=== PATIENT | female | born 1980 | race Caucasian/White ===

== ENCOUNTER 2017-07-11 06:29 | Day surgery (SDC) | payer BC ==
[~2017-07-11 06:29] MED LIST: Lactated Ringers 1,000 ML IV SCH
[2017-07-11] MEDS ORDERED: Lidocaine 2% 5 ML SDV ONE (06:57)
[2017-07-11] MEDS ORDERED: Ondansetron 4 MG/2 ML SDV ONE (06:57)
[2017-07-11] MEDS ORDERED: Midazolam 1 MG/ML 2 ML SDV ONE (06:58)
[2017-07-11] MEDS ORDERED: Propofol 200 MG/20 ML SDV ONE (06:58)
[2017-07-11] MEDS ORDERED: fentaNYL 100 MCG/2 ML SDV ONE (06:58)
[2017-07-11] MEDS ORDERED: Scopolamine 1.5 MG Transdermal Patch TRDERM PRN (07:07)
--- NOTE | 2017-07-11 07:07 | PCM.PREANE ---
Preanesthetic Assessment - Anesthesia/Transfusion/Family Hx Anesthesia History: Prior Anesthesia Without Reaction Family History of Anesthesia Reaction: No Transfusion History: No Prior Transfusion(s) Intubation History: Unknown - Review of Systems General: No Symptoms Pulmonary: No Symptoms Cardiovascular: No Symptoms Gastrointestinal: No Symptoms Neurological: No Symptoms Other: Reports: None - Physical Assessment O2 Sat by Pulse Oximetry: 98 Respiratory Rate: 16 Vital Signs: Last Vital Signs Temp 36.5 C 07/11/17 06:49 Pulse 82 07/11/17 06:49 Resp 16 07/11/17 06:49 BP 108/66 07/11/17 06:49 Pulse Ox 98 07/11/17 06:49 Height: 1.61 m Weight: 56.245 kg ASA Class: 2 Mental Status: Alert & Oriented x3 Airway Class: Mallampati = 2 Dentition: Reports: Normal Dentition (retainer at the bottom) Thyro-Mental Finger Breadths: 3 Mouth Opening Finger Breadths: 2 ROM/Head Extension: Full Lungs: Clear to Auscultation, Normal Respiratory Effort Cardiovascular: Regular Rate, Regular Rhythm - Allergies Allergies/Adverse Reactions: Allergies Allergy/AdvReac Type Severity Reaction Status Date / Time No Known Allergies Allergy Verified 07/08/17 15:23 - Blood Blood Available: No - Anesthesia Plan Pre-Op Medication Ordered: None - Acknowledgements Anesthesia Type Planned: General Anesthesia Pt an Appropriate Candidate for the Planned Anesthesia: Yes Alternatives and Risks of Anesthesia Discussed w Pt/Guardian: Yes Pt/Guardian Understands and Agrees with Anesthesia Plan: Yes PreAnesthesia Questionnaire HEENT History: Reports: None Genitourinary History: Reports: None ADOPTION SPECIALIST History: Reports: Neurological History: Reports: Migraines Psychiatric History: Reports: Depression Hematologic History: Reports: Idiopathic Thrombocytopenia Other Hematologic History: thrombocytopenia with - Past Surgical History Head Surgeries/Procedures: Reports: None HEENT Surgical History: Reports: Adenoidectomy, Tonsillectomy Female Surgical History: Reports: Section, LEEP - SUBSTANCE USE Smoking Status *Q: Never Smoker Recreational Drug Use History: No - HOME MEDS Home Medications: Home Meds Vit #108/Iron/FA [ One Tablet] 1 tab PO DAILY 07/08/17 [History ] - CURRENT (IN HOUSE) MEDS Current Meds: Current Medications Lactated Ringer's (Ringers, Lactated) 1,000 mls @ 125 mls/hr IV ASDIRECTED KAYE Last Admin: 07/11/17 06:52 Dose: 125 mls/hr Discontinued Medications Fentanyl (Sublimaze) Confirm Administered Dose 100 mcg .ROUTE .STK-MED ONE Stop: 07/11/17 06:59 Lidocaine (Xylocaine-Mpf 2%) Confirm Administered Dose 5 ml .ROUTE .STK-MED ONE Stop: 07/11/17 06:58 Midazolam HCl (Versed 1 Mg/Ml) Confirm Administered Dose 2 mg .ROUTE .STK-MED ONE Stop: 07/11/17 06:59 Ondansetron HCl (Zofran) Confirm Administered Dose 4 mg .ROUTE .STK-MED ONE Stop: 07/11/17 06:58 Propofol (Diprivan 20 Ml) Confirm Administered Dose 200 mg .ROUTE .STK-MED ONE Stop: 07/11/17 06:59
[2017-07-11] MEDS ORDERED: Dexamethasone 4 MG/ML 5 ML MDV ONE (08:07)
[2017-07-11] MEDS ORDERED: Methylergonovine 0.2 MG/1 ML Amp ONE (08:17)
[2017-07-11] MEDS ORDERED: Phenylephrine/Normal Saline 100 MCG/ML 10 ML Syringe ONE (08:22)
--- NOTE | 2017-07-11 09:43 | PCM.OPNOTE ---
- General Post-Op/Procedure Note Date of Surgery/Procedure: 07/11/17 Operative Procedure(s): suction dilatation and curettage Findings: Uterus sounded to 9 cm boggy preop; postoperative, firm, minimal bleeding. 6 week size Pre Op Diagnosis: missed Post-Op Diagnosis: Same Anesthesia Technique: General LMA Primary Surgeon: Xuan Giron Anesthesia Provider: Bg Fish Hydraulic Hammer Operator: Tima Hassan Pathology: products of conception Fluid Replacement, Intraop: 2,500 EBL in mLs: 800 Complications: None Known Condition: Good Free Text/Narrative:: Intake & Output 07/10/17 07/11/17 07/11/17 22:59 06:59 14:59 Intake Total 2700 Balance 2700
--- NOTE | 2017-07-11 11:01 | OR ---
SURGEON: Xuan Giron M.D. DATE OF PROCEDURE: 07/11/2017 PREOPERATIVE DIAGNOSIS: Eight-week embryonic demise. Missed . POSTOPERATIVE DIAGNOSIS: Eight-week embryonic demise. Missed . PROCEDURE: Suction, dilatation, and curettage. ANESTHESIA: General LMA. ESTIMATED BLOOD LOSS: 800 mL. FLUIDS: 2500 mL crystalloid. FINDINGS: Preoperatively, the uterus was boggy and anteverted 10 weeks size, sounds to 9 cm. Postoperatively, the uterus was firm by bimanual massage with minimal bleeding, 6 weeks size. COMPLICATIONS: None known. DISPOSITION: Stable to recovery. BRIEF HISTORY: This is a -0-1-3. She presented for initial OB visit. Prior ultrasound had shown a very low heart rate at 80. Followup ultrasound showed minimal growth 8-week size embryo with no cardiac activity. Options were discussed with the patient including Cytotec, suction D and C, or expectant management. She desired to proceed with suction D and C, with risks discussed including bleeding, infection, uterine perforation with injury to surrounding organs, risk of Asherman syndrome, and risk of anesthesia as well as risk of thromboembolic event. Understanding all these risks, she does desire to proceed. DESCRIPTION OF PROCEDURE: With the patient in the dorsal lithotomy position, under adequate LMA analgesia, the perineum and vagina were prepped with Betadine and draped in usual fashion for vaginal surgery. Bimanual examination revealed a 10-week size boggy uterus. Speculum was placed into the vagina. The anterior cervix was grasped with an Allis clamp. The uterus was sounded to 9 cm. The cervix was dilated to a 10 mm Hegar dilator. A 10 mm straight suction cannula was placed to the uterine fundus. With gentle traction on the cervix, it was rotated in a repetitive fashion until no further tissue was obtained. Sharp curettage was gently performed at the 12, 3, 6, and 9 o'clock position with a good uterine cry felt. Additional passage was taken with the suction curette. At this point, methargen IM was given to assist with contraction of the uterus, which did contract nicely. The speculum was removed from the vagina. Bimanual massage was performed. The uterus was now 6 weeks size and very firm. Speculum was replaced into the vagina. Final passage of the suction cannula was taken and sharp curettage was repeated, and no further tissue was obtained. Therefore, all of the instruments were removed from the vagina. Final sponge, needle, and instrument counts were reported as correct. There were no known complications. Time-out had been performed prior to proceeding with the procedure. INES ARROYO /[id number]
== END 2017-07-11 10:30 | disposition home or self-care (01) ==
LOC: MW.SDS 06:29
PROVIDERS: ATTEND Obstetrics & Gynecology
DX: O02.1 Missed abortion (principal); G43.909 Migraine, unspecified, not intractable, without status migrainosus; F32.9 Major depressive disorder, single episode, unspecified; O99.111 Other diseases of the blood and blood-forming organs and certain disorders involving the immune mechanism complicating pregnancy, first trimester; D69.3 Immune thrombocytopenic purpura; Z79.899 Other long term (current) drug therapy; Z98.890 Other specified postprocedural states; Z3A.08 8 weeks gestation of pregnancy
CPT/HCPCS: 36415; 59820; 85027; A9270; J1100; J2210; J2250; J2405; J3010; J7120; 01965; 88305; J2704